=== PATIENT | male | born 1980 | race Caucasian/White ===

== ENCOUNTER → 2017-10-08 | Day surgery (SDC) | payer BC ==
[~2017-10-08] MED LIST: CLONAZEPAM1 MG PO; FENTANYL CITRATE/PF 100MCG/2 ML INJ ONE; HYOSCYAMINE SULFATE 0.5 MG/ML AMP ONE; LEXAPRO10 MG PO; LIDOCAINE HCL 2% LOCAL INJ 5 ML SDV VIAL INJ ONE; MIDAZOLAM HCL 2 MG/2 ML VIAL ONE; PROPOFOL IV EMULSION 10 MG/ML 50 ML VIAL ONE
--- NOTE | 2017-10-08 09:51 | Operative Report ---
DATE OF PROCEDURE: October 08, 2017 PROCEDURE PERFORMED: Colonoscopy with biopsies. REFERRING PHYSICIAN: Dr. Richard Mg INDICATIONS FOR COLONOSCOPY: Rectal bleeding. MEDICATION: Patient was done under MAC. Please see anesthesiologist note. PROCEDURE IN DETAIL: With the patient in left lateral decubitus position, flexible fiberoptic Olympus colonoscope was inserted into the rectum with ease and advanced all the way to the cecum. Mucosa overlying the cecum appeared to be within normal limits. The ileocecal valve was intubated and the scope was advanced into the terminal ileum. The mucosa overlying the terminal ileum, the part of which that was examined appeared to be within normal limits. The scope was then withdrawn back into the colon. It was then withdrawn slowly. Mucosa overlying the ascending and the transverse and the descending grossly appeared to be within normal limits. There was some patchy intense erythema and low-grade to moderate edema noted in the sigmoid and the rectum, and biopsies were obtained. The scope was then retroflexed into the distal rectum and small internal hemorrhoids were noted, none of which was actively bleeding. The scope was then straightened out. The rectosigmoid area as well as the distal rectal area were decompressed. The scope was subsequently withdrawn. Patient tolerated the procedure well. IMPRESSION: 1. Proctosigmoiditis, mild. 2. Internal hemorrhoids, none actively bleeding. PLAN: Follow up histology. Initiate high-fiber low-fat diet. Initiate high-fiber supplement. Hydrocortisone suppositories 25 mg b.i.d. times 10 days, then p.r.n. Start VSL#3 DS 1 p.o. every day. If bleeding recurs, then will obtain a Meckel scan, and if negative then might need further evaluation of the small bowel and possibly an EGD. Job#: [id number] cc:RICHARD MG MD
== END | disposition home or self-care (01) ==
LOC: OR 06:07 → EDBD 07:30
PROVIDERS: ATTEND Internal Medicine Gastroenterology
DX: K63.89 Other specified diseases of intestine (principal); K64.8 Other hemorrhoids; R03.0 Elevated blood-pressure reading, without diagnosis of hypertension; F31.9 Bipolar disorder, unspecified; F41.9 Anxiety disorder, unspecified; Z68.27 Body mass index [BMI] 27.0-27.9, adult
CPT/HCPCS: 45380; J1980; J2001; J2250; 45378